=== PATIENT | female | born 1980 | race Caucasian/White ===

== ENCOUNTER 2016-11-10 12:46 | Emergency (ER) | payer MEDICAID ==
[~2016-11-10] VITALS: Ht 162.6 cm; Wt 43.2 kg
[~2016-11-10 12:46] MED LIST: AMOXICILLIN500 MG PO; AMOXICILLIN875 MG OR; BRETHINE2.5 MG OR; CEPHALEXIN500 M1 OR; CIPRO500 MG PO; CLEOCIN150 MG PO; DARVOCET N-100100 - OR; FLEXERIL10 MG PO; FLONASE0.05 %; HYDROXYZ HCL25 MG PO; KEFLEX500 MG PO; LORTAB 10 OR; LORTAB 5 OR; MACROBID100 MG PO; MEDDOSEPAK OR; NAPROSYN500 MG OR; NAPROSYN500 MG PO; NAPROXEN500 MG OR; NO MEDS; OMNICEF300 MG PO; ORTHO EVRA TD; PENICILLN VK500 MG OR; PRE-NATAL OR; PRENATA4 OR; RHO (D) IMMUN300 MCG IM; ROBITUSSIN AC10 ML PO; ROCEPHIN 2250 MG/VIA IM; TRAMADOL HCL50 MG OR; TUBERSOL5 MG/0.1 M ID; YAZ1 TAB PO
[2016-11-10 15:02] VITALS: BP 101/61
== END 2016-11-10 15:09 | disposition home or self-care (01) | DRG 605 ==
LOC: ED 12:46
PROC: 0HQGXZZ Repair Left Hand Skin, External Approach (ICD-10-PCS; principal; 2016-11-10)
DX: S61.211A Laceration without foreign body of left index finger without damage to nail, initial encounter (principal); W45.8XXA Other foreign body or object entering through skin, initial encounter; Y92.009 Unspecified place in unspecified non-institutional (private) residence as the place of occurrence of the external cause

== ENCOUNTER 2017-05-18 19:28 | Emergency (ER) | payer MEDICAID ==
[~2017-05-18] VITALS: Ht 162.6 cm; Wt 42.8 kg
[2017-05-18] MEDS ORDERED: CODEINE/GUAIFEN1 SOL PO (20:54)
[2017-05-18] MEDS ORDERED: AMOXICILLIN500 MG PO (20:54)
[2017-05-18 21:07] VITALS: BP 99/66
== END 2017-05-18 21:07 | disposition home or self-care (01) | DRG 203 ==
LOC: ED 19:28
DX: J40 Bronchitis, not specified as acute or chronic (principal); F17.210 Nicotine dependence, cigarettes, uncomplicated; R09.81 Nasal congestion

== ENCOUNTER 2018-09-03 12:17 | Emergency (ER) | payer MEDICAID ==
[~2018-09-03] VITALS: Ht 162.6 cm; Wt 43.0 kg
[~2018-09-03 12:17] MED LIST changes: +CODEINE/GUAIFEN1 SOL PO
[2018-09-03] MEDS ORDERED: NAPROSYN500 MG PO (14:02)
[2018-09-03 14:45] VITALS: BP 103/77
== END 2018-09-03 14:45 | disposition home or self-care (01) ==
LOC: ED 12:17
DX: S81.011A Laceration without foreign body, right knee, initial encounter (principal); F17.210 Nicotine dependence, cigarettes, uncomplicated; W20.8XXA Other cause of strike by thrown, projected or falling object, initial encounter; Y93.H2 Activity, gardening and landscaping; Y92.007 Garden or yard of unspecified non-institutional (private) residence as the place of occurrence of the external cause

== ENCOUNTER 2019-02-19 18:19 | Emergency (ER) | payer MEDICAID ==
[~2019-02-19] VITALS: Ht 162.6 cm; Wt 42.0 kg
[2019-02-19 19:10] VITALS: BP 112/79
== END 2019-02-19 19:10 | disposition home or self-care (01) ==
LOC: ED 18:19
DX: S50.12XA Contusion of left forearm, initial encounter (principal); F17.210 Nicotine dependence, cigarettes, uncomplicated; W20.8XXA Other cause of strike by thrown, projected or falling object, initial encounter; Y93.89 Activity, other specified; Y92.009 Unspecified place in unspecified non-institutional (private) residence as the place of occurrence of the external cause

== ENCOUNTER 2020-08-25 10:40 | Emergency (ER) | payer MEDICAID ==
[~2020-08-25] VITALS: Ht 162.6 cm; Wt 50.0 kg
[2020-08-25 11:15] LABS: HEMATOCRIT 44.6 % (37.0-47.0); HEMOGLOBIN 14.7 g/dl (12.0-16.0); IMMATURE GRANULOCYTES 0.4 % (0.0-5.0); MEAN CORPUSCULAR HGB 29.5 pG CALC (26.0-32.0); NEUT# 7.04 thou/uL (2.00-7.15); RED BLOOD COUNT 4.98 mill/uL (4.20-5.60); RED CELL DISTRI WIDTH 13.6 % (11.5-15.5)
[2020-08-25 11:21] LABS: MEAN CELL VOLUME 89.6 fL CALC (80.0-100.0)
[2020-08-25 11:31] LABS: ALKALINE PHOSPHATASE 65 u/l (38-126); ANION GAP 14 (6-22 (CALC)); BUN 10 mg/dL (7-17); BUN/CREATININE RATIO 16 (12-20 (CALC)); CARBON DIOXIDE 25 mmol/l (22-30); CHLORIDE 102 mmol/l (95-108); CREATININE 0.6 mg/dL (0.5-1.0); GFR > 60 ML/MIN (>=60 (CALC)); GFR FOR AFR.AMER. > 60 ML/MIN (>=60 (CALC)); POTASSIUM 3.5 mmol/l (3.5-5.1); SODIUM 138 mmol/l (137-146); TOTAL PROTEIN 8.2 g/dL (6.3-8.2)
[2020-08-25 11:33] LABS: ACT PARTIAL THROMBO TIME 21.1 SECONDS (20.0-32.5); PROTHROMBIN TIME 10.1 SECONDS (9.0-12.5)
[2020-08-25 11:51] LABS: BILIRUBIN, TOTAL 1.7 mg/dL (0.0-1.4); SGOT/AST 70 u/l (14-36)
[2020-08-25] MEDS ORDERED: FLEXERIL5 M1 PO (14:06)
[2020-08-25] MEDS ORDERED: HYDROCO/APAP1 TA9 PO (14:06)
[2020-08-25] MEDS ORDERED: ZOFRAN4 MG/TAB PO (14:06)
[2020-08-25] MEDS ORDERED: IBUPROFEN600 MG PO (14:06)
[2020-08-25 14:30] VITALS: BP 106/64
== END 2020-08-25 14:30 | disposition home or self-care (01) ==
LOC: ED 10:40
PROVIDERS: Student in an Organized Health Care Education/Training Program
DX: S10.93XA Contusion of unspecified part of neck, initial encounter (principal); M54.5 Low back pain; T14.8XXA Other injury of unspecified body region, initial encounter; F17.210 Nicotine dependence, cigarettes, uncomplicated; Y04.2XXA Assault by strike against or bumped into by another person, initial encounter; Y92.009 Unspecified place in unspecified non-institutional (private) residence as the place of occurrence of the external cause
CPT/HCPCS: Q9967

== ENCOUNTER 2021-01-27 10:27 | Emergency (ER) | payer MEDICAID ==
[~2021-01-27] VITALS: Ht 162.6 cm; Wt 47.0 kg
[~2021-01-27 10:27] MED LIST changes: +FLEXERIL5 M1 PO; +HYDROCO/APAP1 TA9 PO; +IBUPROFEN600 MG PO; +ZOFRAN4 MG/TAB PO
[2021-01-27 12:00] VITALS: BP 119/96
== END 2021-01-27 12:00 | disposition home or self-care (01) ==
LOC: ED 10:27
DX: U07.1 COVID-19 (principal); F17.210 Nicotine dependence, cigarettes, uncomplicated

== ENCOUNTER 2022-01-26 17:12 | Emergency (ER) | payer MEDICAID ==
[~2022-01-26] VITALS: Ht 162.6 cm; Wt 45.0 kg
[2022-01-26 17:25] VITALS: BP 130/77
[2022-01-26 18:12] LABS: HEMATOCRIT 40.2 % (37.0-47.0); HEMOGLOBIN 13.1 g/dl (12.0-16.0); IMMATURE GRANULOCYTES 0.2 % (0.0-5.0); MEAN CELL VOLUME 91.2 fL CALC (80.0-100.0); MEAN CORPUSCULAR HGB 29.7 pG CALC (26.0-32.0); MEAN CORPUSCULAR HGB CONC 32.6 g/dL CAL (32.0-36.0); NEUT# 3.29 thou/uL (2.00-7.15); RED BLOOD COUNT 4.41 mill/uL (4.20-5.60); RED CELL DISTRI WIDTH 14.3 % (11.5-15.5)
[2022-01-26 18:15] LABS: URINE BILIRUBIN - DIPSTICK NEGATIVE (NEGATIVE); URINE BLOOD DIPSTICK LARGE (NEGATIVE); URINE COLOR YELLOW; URINE GLUCOSE - DIPSTICK NEGATIVE (NEGATIVE); URINE KETONE NEGATIVE (NEGATIVE); URINE LEUK ESTERASE NEGATIVE (NEGATIVE); URINE PROTEIN - DIPSTICK NEGATIVE (NEG-TRACE); URINE UROBILINOGEN - DIPSTICK 0.2 E.U./dL (0.2)
[2022-01-26 18:20] LABS: URINE NITRITE - DIPSTICK NEGATIVE (Negative)
[2022-01-26 18:32] LABS: URINE SQUAMOUS EPITHELIAL CELL FEW EPI/hpf (0-FEW); URINE WBC 0-2 WBC/hpf (0-5)
[2022-01-26 18:36] LABS: ALBUMIN 4.5 g/dL (3.2-5.0); ALKALINE PHOSPHATASE 77 u/l (38-126); ANION GAP 11 (6-22 (CALC)); BUN 7 mg/dL (7-17); BUN/CREATININE RATIO 11 (12-20 (CALC)); CARBON DIOXIDE 26 mmol/l (22-30); CHLORIDE 104 mmol/l (95-108); CREATININE 0.7 mg/dL (0.5-1.0); GFR FOR AFR.AMER. > 60 ML/MIN (>=60 (CALC)); GFR OTHER RACES > 60 ML/MIN (>=60 (CALC)); LIPASE 72 u/l (23-300); POTASSIUM 3.6 mmol/l (3.5-5.1); SGOT/AST 32 u/l (14-36); SODIUM 138 mmol/l (137-146); TOTAL PROTEIN 7.7 g/dL (6.3-8.2)
[2022-01-26] MEDS ORDERED: NAPROXEN500 MG PO (20:50)
[2022-01-26] MEDS ORDERED: TRAMADOL HCL50 MG PO (20:50)
[2022-01-26 21:31] VITALS: BP 130/77
== END 2022-01-26 21:35 | disposition home or self-care (01) ==
LOC: ED 17:12
PROVIDERS: Nurse Practitioner
DX: R10.31 Right lower quadrant pain (principal); N83.209 Unspecified ovarian cyst, unspecified side; N28.1 Cyst of kidney, acquired; F17.210 Nicotine dependence, cigarettes, uncomplicated

== ENCOUNTER 2024-09-01 07:12 | Emergency (ER) | payer OTHER ==
[2024-09-01] VITALS (14 sets, daily range): BP systolic 100–124; BP diastolic 67–103
[~2024-09-01] VITALS: Ht 162.6 cm; Wt 46.3 kg
[~2024-09-01 07:12] MED LIST changes: +NAPROXEN500 MG PO; +TRAMADOL HCL50 MG PO
[2024-09-01] MEDS ORDERED: FLEXERIL5 M1 PO (11:22)
== END 2024-09-01 11:36 | disposition home or self-care (01) | DRG 552 ==
LOC: ED 07:12
DX: M54.2 Cervicalgia (principal); M25.571 Pain in right ankle and joints of right foot; F17.210 Nicotine dependence, cigarettes, uncomplicated; V59.40XA Driver of pick-up truck or van injured in collision with unspecified motor vehicles in traffic accident, initial encounter